=== PATIENT | male | born 1965 | race Caucasian/White ===

== ENCOUNTER 2016-11-06 13:13 | Emergency (ER) | payer OTHER ==
[2016-11-06 13:29] VITALS: O2SAT 94
[2016-11-06] MEDS ORDERED: OXYCODONE/APAP 5/325 TAB PO ONE (13:33)
[2016-11-06] MEDS ORDERED: IBUPROFEN 600 MG TAB PO ONE (13:33)
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
[2016-11-06 14:28] VITALS: BP 135/78; PULSE 80; RESP 14; TEMP 97.9
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
== END 2016-11-06 14:27 | disposition home or self-care (01) ==
LOC: EDUNIT#
DX: S16.1XXA Strain of muscle, fascia and tendon at neck level, initial encounter (principal); V49.49XA Driver injured in collision with other motor vehicles in traffic accident, initial encounter; Y92.410 Unspecified street and highway as the place of occurrence of the external cause; Y93.89 Activity, other specified

== ENCOUNTER 2016-11-09 20:47 | Emergency (ER) | payer OTHER ==
[2016-11-09 21:21] VITALS: RESP 16; TEMP 99.3; O2SAT 95
[2016-11-09] MEDS ORDERED: HYDROCODONE/APAP 5/325 TAB PO ONE (22:49)
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
[2016-11-10 00:59] VITALS: BP 144/122; PULSE 74
[2016-11-10] MEDS ORDERED: HYDROCOD/APAP 5/325 PREPACK#6 BTL TAKEHOME ONE (01:27)
[2016-11-10] MEDS ORDERED: predniSONE 20 MG TAB PO ONE (01:28)
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
== END 2016-11-10 01:40 | disposition home or self-care (01) ==
DX: S09.90XA Unspecified injury of head, initial encounter (principal); M54.12 Radiculopathy, cervical region; M54.16 Radiculopathy, lumbar region; M51.36 Other intervertebral disc degeneration, lumbar region; F17.200 Nicotine dependence, unspecified, uncomplicated; V49.40XA Driver injured in collision with unspecified motor vehicles in traffic accident, initial encounter; Y92.410 Unspecified street and highway as the place of occurrence of the external cause; Y99.8 Other external cause status; Y93.89 Activity, other specified